=== PATIENT | male | born 1965 ===

== ENCOUNTER 2020-12-24 17:29 | Emergency (ER) | payer SELFPAY ==
[2020-12-24 17:57] LABS: Basophils # (Auto) 0.1 K/mm3 (0.0-0.1); Basophils % (Auto) 2.1 % (0.0-1.8); Eosinophils % (Auto) 0.6 % (0.0-4.3); Hematocrit 47.3 % (35.5-45.6); Hemoglobin 16.4 gm/dl (11.8-15.2); Lymphocytes # (Auto) 1.8 K/mm3 (1.2-5.4); Lymphocytes % (Auto) 33.5 % (13.4-35.0); Mean Corpuscular HGB Conc 35 % (32-34); Mean Corpuscular Volume 101 fl (84-94); Monocytes # (Auto) 0.6 K/mm3 (0.0-0.8); Monocytes % (Auto) 10.2 % (0.0-7.3); Red Cell Distribution Width 13.7 % (13.2-15.2)
--- NOTE | 2020-12-24 17:59 | Cat Scan Report ---
CT BRAIN: 12/24/2020 INDICATION / CLINICAL INFORMATION: Left-sided weakness. COMPARISON: None available. FINDINGS: BRAIN/INTRACRANIAL STRUCTURES: Unenhanced CT images of the brain dated straight no evidence of acute intracranial abnormality. Ventricles and sulci are at the upper limits of normal in size and shape for a patient of this age. There is no evidence of acute ischemic injury, hemorrhage, or mass. There are no abnormal extra-axial fluid collections. EXTRACRANIAL STRUCTURES: Unremarkable. IMPRESSION: No acute abnormality. Negative unenhanced CT of the brain. Notification: Dr. Whitt in emergency department at [address] scans at this location are performed using dose reduction to ALARA by means of automated expos ure control. Signer Name: Mayo Mcnamara MD Signed: 12/24/2020 5:55 PM Workstation Name: [id number]
[2020-12-24 18:00] LABS: Platelet Count 87 K/mm3 (140-440)
[2020-12-24] MEDS ORDERED: ASPIRIN 325 MG TAB PO ONE (18:05)
[2020-12-24 18:12] LABS: Alanine Aminotransferase 44 units/L (7-56); Blood Urea Nitrogen 5 mg/dL (9-20); Calcium 8.2 mg/dL (8.4-10.2); Hemolysis Index 9
--- NOTE | 2020-12-24 18:14 | Emergency Department Report ---
Blank Doc - Documentation Documentation: [facility] Consult Note # Demographics Consult Type: Acute Stroke Level 1 (0-4.5 hrs) Patient Location: Emergency Room First Name: Suresh Last Name: Rei Date of : 1965 Age: 55 Gender: Male Time of Initial Page ( Time): 12/24/2020, 17:30 Time of Return Call ( Time): 12/24/2020, 17:30 # HPI History: 55yo M had episodes of loss of consciousness with stiffening and lets out a big gasp and then answer questions. last well about 1644 local time # Scores Time of exam and NIHSS (): 12/24/2020, 17:35 Level of Consciousness 1a: [0] = Alert; keenly responsive LOC Questions 1b: [0] = Answers both questions correctly LOC Commands 1c: [0] = Performs both tasks correctly Best Gaze 2: [0] = Normal Visual 3: [0] = No visual loss Facial Palsy 4: [2] = Partial paralysis Motor Arm Left 5a: [4] = No movement Motor Arm Right 5b: [0] = No drift Motor Leg Left 6a: [3] = No effort against gravity Motor Leg Right 6b: [0] = No drift Limb Ataxia 7: [0] = Absent Sensory 8: [0] = Normal Best Language 9: [0] = No aphasia Dysarthria 10: [0] = Normal Extinction and Inattention 11: [0] = No abnormality NIHSS Total: 9 # PMH-FH-SH Past Medical History: stroke most recent sroke about 1 week ago # Data Head CT: no bleed preliminarily reviewed by me, please refer to radiology read for official reading # Assessment Impression: syncope vs seizure. unliely new stroke # Plan Thrombolytic/Intervention: NOT IV Thrombolysis or IA Intervention candidate Thrombolytic Exclusion (< 3 hour window): stroke within 3 months other (see below) Thrombolytic Exclusion: suspected seizures Intraarterial Exclusion: clinically consistent with small vessel disease Imaging: (urgency: routine): MRI Brain with AND without contrast Diagnostic Test: EEG Medication: contienu home AEDs if taking Other: seizure precautions I have discussed my recommendations with the referring provider # Logistics Telemedicine: Interactive 2 way audio and visual telecommunication technology was utilized during this visit
[2020-12-24 18:16] LABS: BUN/Creatinine Ratio 13
--- NOTE | 2020-12-24 18:18 | Emergency Department Report ---
HPI - General Chief Complaint: Neuro Symptoms/Deficit Time Seen by Provider: 12/24/20 17:33 - HPI HPI: Room 7 The patient is a 55-year-old male present with chief complaint of syncope. 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 Patient does not recall the event. EMS was called and they state the patient had multiple episodes of syncope while en route. EMS describes the episodes as the patient passing out stiffening up for 2 to 5 seconds and then become becomes responsive again. Patient is amnestic to the events. The patient states he was admitted to the ICU 3 days ago for CVA. Patient states he was discharged the following day and started on several medications 1 of which starts with " L" (Levetiracetam?) That he takes twice a day. In the ED the patient is alert and oriented x4. Patient states he does not wish to have further evaluation that he would like to leave the hospital AGAINST MEDICAL ADVICE. ED Past Medical Hx - Past Medical History Previous Medical History?: Yes Hx CVA: Yes Hx Diabetes: Yes - Surgical History Past Surgical History?: No - Family History Family history: no significant - Social History Smoking Status: Never Smoker Substance Use Type: None ED Review of Systems ROS: Stated complaint: POSS STROKE Other details as noted in HPI Constitutional: no symptoms reported Eyes: denies: eye pain ENT: denies: throat pain Respiratory: no symptoms reported Cardiovascular: denies: chest pain Endocrine: no symptoms reported Gastrointestinal: denies: abdominal pain Genitourinary: denies: dysuria Musculoskeletal: denies: back pain Neurological: denies: headache Physical Exam - Physical Exam Physical Exam: GENERAL: The patient is well-developed well-nourished male lying on stretcher not appearing to be in acute distress. [] HEENT: Normocephalic. Atraumatic. Extraocular motions are intact. Patient has moist mucous membranes. NECK: Supple. Trachea midline CHEST/LUNGS: There is no respiratory distress noted. HEART/CARDIOVASCULAR: Regular. There is no tachycardia. SKIN: There is no rash. There is no edema. There is no diaphoresis. NEURO: The patient is awake, alert, and oriented. The patient is cooperative. The patient has left-sided weakness from recent CVA. The patient has normal speech but ambulates with a limp secondary to left-sided weakness. GCS 15 MUSCULOSKELETAL: There is no evidence of acute injury. ED Medical Decision Making - Lab Data Result diagrams: 12/24/20 Unknown - Radiology Data Radiology results: report reviewed (CT head), image reviewed (CT head) [facility] [address] [place] [address] Cat Scan Report Signed Patient: SARAH HUDSON MR#: [id number] : 1965 Acct:[id number] Age/Sex: 55 / M ADM Date: 12/24/20 Loc: ED Attending Dr: Ordering Physician: ALVARADO CARDONA MD Date of Service: 12/24/20 Procedure(s): CT head/brain wo con Accession Number(s): [id number] cc: ALVARADO CARDONA MD CT BRAIN: 12/24/2020 INDICATION / CLINICAL INFORMATION: Left-sided weakness. COMPARISON: None available. FINDINGS: BRAIN/INTRACRANIAL STRUCTURES: Unenhanced CT images of the brain dated straight no evidence of acute intracranial abnormality. Ventricles and sulci are at the upper limits of normal in size and shape for a patient of this age. There is no evidence of acute ischemic injury, hemorrhage, or mass. There are no abnormal extra- axial fluid collections. EXTRACRANIAL STRUCTURES: Unremarkable. IMPRESSION: No acute abnormality. Negative unenhanced CT of the brain. Notification: Dr. Cardona in emergency department at [address] scans at this location are performed using dose reduction to ALARA by means of automated exposure control. Signer Name: Mayo Mcnamara MD Signed: 12/24/2020 5:55 PM Workstation Name: [id number] Transcribed By: TED Dictated By: Mayo Mcnamara MD Electronically Authenticated By: Mayo Mcnamara MD Signed Date/Time: 12/24/201754 DD/ 49 TD/TT: Print Cancel - Differential Diagnosis Seizures, CVA Critical care attestation.: If time is entered above; I have spent that time in minutes in the direct care of this critically ill patient, excluding procedure time. ED Disposition Clinical Impression: Transient neurological symptoms Disposition: DC-07 LEFT AGAINST MED ADVICE Is pt being admited?: No Does the pt Need Aspirin: No Condition: Stable
[2020-12-24 18:21] LABS: INR 1.19 (0.87-1.13)
[2020-12-24 18:22] LABS: Partial Thromboplastin Time 34.1 Sec. (24.2-36.6); Thrombin Time 18.9 Sec. (15.1-19.6)
== END 2020-12-24 18:30 | disposition left against medical advice (07) ==
LOC: ED 17:29
DX: R29.818 Other symptoms and signs involving the nervous system (principal); E11.8 Type 2 diabetes mellitus with unspecified complications
CPT/HCPCS: 36415; 70450; 80053; 80320; 82962; 83735; 85025; 85610; 85670; 85730; 99284; G0480